=== PATIENT | female | born 1955 | race Caucasian/White ===

== ENCOUNTER 2018-06-19 16:04 | Emergency (ER) | payer BC ==
[~2018-06-19] VITALS: Ht 175.3 cm; Wt 143.8 kg
[2018-06-19] MEDS ORDERED: BUPIVACAINE HCL 0.5% INJ 30 ML VIAL INJ ONE (17:00)
[2018-06-19] MEDS ORDERED: METHYLPREDNISOLONE ACETATE 80 MG/ML VIAL IM ONE (17:00)
[2018-06-19] MEDS ORDERED: BUPIVACAINE HCL 0.5% 10ML MPF VIAL INJ ONE (17:15)
[2018-06-19] MEDS ORDERED: METHYLPREDNISOLONE ACETATE 80 MG/ML VIAL INJ ONE (17:15)
--- NOTE | 2018-06-19 17:17 | Diagnostic Imaging Report ---
KNEE 4VW LT - HOPD HISTORY: Fall 10 days ago with reinjury. Unable to bear weight. COMPARISON: None available. FINDINGS: Bones: No acute displaced fracture. Osseous alignment is within normal limits. Joints: Mild tricompartmental degenerative changes, worse in the lateral and patellofemoral compartments. Soft tissues: The soft tissues appear unremarkable. IMPRESSION: No acute osseous abnormality. Signed by: DR. Joesph Stovall MD on 06/19/2018 5:14 PM
== END 2018-06-19 18:55 | disposition home or self-care (01) ==
LOC: FSED 16:04
DX: M25.562 Pain in left knee (principal); M17.12 Unilateral primary osteoarthritis, left knee
CPT/HCPCS: 20610; 73564; 99284; J1040